=== PATIENT | female | born 1990 | race Caucasian/White ===

== ENCOUNTER 2016-07-05 15:10 | Emergency (ER) | payer OTHER ==
[2016-07-05 15:26] VITALS: BP 128/81; PULSE 92; TEMP 98.5; BMI 31.1
[2016-07-05] MEDS ORDERED: IBUPROFEN 400 MG TABLET (FP) PO ONE ×2 (16:20→16:35)
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
[2016-07-05] MEDS ORDERED: DIPHTH,PERTUSS(ACELL),TET 0.5 ML DISP.SYRIN IM ONE (16:55)
== END 2016-07-05 17:11 | disposition home or self-care (01) ==
LOC: JERFT 15:10
PROC: 08QPXZZ Repair Left Upper Eyelid, External Approach (ICD-10-PCS; principal; 2016-07-05)
DX: S09.90XA Unspecified injury of head, initial encounter (principal); S01.112A Laceration without foreign body of left eyelid and periocular area, initial encounter; Y04.2XXA Assault by strike against or bumped into by another person, initial encounter; Y93.89 Activity, other specified; Y92.9 Unspecified place or not applicable
CPT/HCPCS: 12011-25; 90715; 99282-25

== ENCOUNTER 2016-10-24 16:46 | Emergency (ER) | payer OTHER ==
[2016-10-24 16:57] VITALS: BP 102/64; PULSE 65; TEMP 97.9; BMI 30.9
[2016-10-24] MEDS ORDERED: SODIUM CHLORIDE 0.9% 1000 ML INFUS.BAG IV ONE (17:36)
[2016-10-24] MEDS ORDERED: METOCLOPRAMIDE HCL INJECTION 10 MG/2 ML VIAL IVPB ONE (17:36)
[2016-10-24] MEDS ORDERED: METOCLOPRAMIDE HCL INJECTION 10 MG/2 ML VIAL ONE (17:38)
--- NOTE | 2016-10-24 17:48 | PDOC ---
History of Present Illness - General Chief Complaint: Headache Stated Complaint: HEADACHE Time Seen by Provider: 10/24/16 17:17 History Source: Patient Exam Limitations: No Limitations - History of Present Illness Initial Comments: 10/24/16 17:45 Patient is a 26-year-old female, no significant medical history currently on no medication presents with headache since yesterday. Patient reports that headache started in the left zoroastrianism area and goes across her head like a band. Patient does not have a history of headaches, has taken Tylenol Motrin and Aleve without resolve of symptoms. Patient was told by her primary care doctor to come to emergency department for CT scan of the head. Patient states she does have photophobia, no neurosensory deficits, no dizziness, headache is described as stabbing and pressure. Patient currently started her menstrual cycle today. Denies any cough or cold like symptoms. Patient describes headache as "worse headache of her life". Patient due to get her period today. Mild spotting Past Medical History: Denies. Allergies: No known allergies Medications: Motrin, Tylenol, Aleve, when necessary Family History: Non-contributory Social History: Denies smoking, alcohol use, or IVDU Review of Systems GENERAL/CONSTITUTIONAL: No fever or chills. No weakness. No weight change. HEAD, EYES, EARS, NOSE AND THROAT: No change in vision. No ear pain or discharge. No sore throat. CARDIOVASCULAR: No chest pain or shortness of breath. RESPIRATORY: No cough, wheezing, or hemoptysis. GASTROINTESTINAL: No nausea, vomiting, diarrhea or constipation. No rectal bleeding. GENITOURINARY: No dysuria, frequency, or change in urination. MUSCULOSKELETAL: No joint or muscle swelling or pain. No neck or back pain. SKIN: No rash or easy bruising. NEUROLOGIC: No headache, vertigo, loss of consciousness, or loss of sensation. PSYCHIATRIC: No depression or anxiety. ENDOCRINE: No increased thirst. No abnormal weight change. HEMATOLOGIC/LYMPHATIC: No anemia, easy bleeding, or history of blood clots. ALLERGIC/IMMUNOLOGIC: No hives or skin allergy. No latex allergy. Physical Exam: GENERAL: The patient is awake, alert, and fully oriented, in no acute distress. HEAD: Normal with no signs of trauma. EYES: Pupils equal, round and reactive to light, extraocular movements intact, sclera anicteric, conjunctiva clear. ENT: Ears normal, nares patent, oropharynx clear without exudates. Moist mucous membranes. No uvula deviation no sinus pressure and pain. NECK: Normal range of motion, supple without lymphadenopathy, JVD, or masses. LUNGS: Breath sounds equal, clear to auscultation bilaterally. No wheezes, and no crackles. HEART: Regular rate and rhythm, normal S1 and S2 without murmur, rub or gallop. ABDOMEN: Soft, nontender, normoactive bowel sounds. No guarding, no rebound. No masses. No bruising or abrasions MUSCULOSKELETAL: Normal range of motion, no edema. No clubbing or cyanosis. No cords, erythema, or tenderness. No CVA Tenderness with fist. NEUROLOGICAL: Cranial nerves II through XII grossly intact. Normal speech, normal gait. PSYCH: Normal mood, normal affect. SKIN: Warm, Dry, normal turgor, no rashes or lesions noted. 10/24/16 17:48 Past History - Past Medical History Allergies/Adverse Reactions: Allergies Allergy/AdvReac Type Severity Reaction Status Date / Time No Known Allergies Allergy Verified 10/24/16 16:57 Home Medications: Ambulatory Orders Ibuprofen 800 mg PO TID PRN #21 tablet 07/05/16 Naproxen [Naprosyn -] 500 mg PO BID #20 tablet 10/24/16 Anemia: Yes Asthma: Yes (allergy induced) Cancer: No Cardiac Disorders: No Diabetes: No HTN: No Psychiatric Problems: Yes (anxiety) Seizures: No Thyroid Disease: No - Reproductive History (#): 8 Para: 5 Cervical CA: No Dysfunctional Uterine Bleeding: No Ectopic : No Endometrial CA: No Polycystic Ovaries: No Therapeutic (s) & number: No Tubal Ligation: No Spontaneous : 2 - Psycho/Social/Smoking Cessation Hx Anxiety: Yes Suicidal Ideation: No Smoking History: Never smoked Have you smoked in the past 12 months: No Number of Cigarettes Smoked Daily: 3 Information on smoking cessation initiated: No Hx Alcohol Use: No Drug/Substance Use Hx: No Substance Use Type: None Hx Substance Use Treatment: No *Physical Exam - Vital Signs Last Vital Signs Temp Pulse Resp BP Pulse Ox 97.9 F 65 18 102/64 99 10/24/16 16:54 10/24/16 16:54 10/24/16 16:54 10/24/16 16:54 10/24/16 16:54 Medical Decision Making - Medical Decision Making 10/24/16 17:47 A/P: Patient here for evaluation of headache which started yesterday, no history of headache. Plan: Urine , head CT Saline lock Reglan 10mg Benadryl 12.5 mg IV 10/24/16 19:00 After medication patient states that headache is slightly improved, awaiting urine specimen for urine in order to rule out to perform head CT 10/24/16 20:19 While awaiting urine , patient states that her headache is 100% resolved after the length, states that she does not want have head CT if headache returns she will follow-up with her primary care doctor tomorrow. I feel it is reasonable at this time to DC patient home, Naprosyn as needed for pain, strict follow-up with PMD tomorrow if headache persists or increased headache, nausea vomiting, unsteady gait, or any other concerns return immediately to ER. *DC/Admit/Observation/Transfer Diagnosis at time of Disposition: Headache Qualifiers: Headache type: tension-type Headache chronicity pattern: acute headache Intractability: not intractable Qualified Code(s): G44.209 - Tension-type headache, unspecified, not intractable - Discharge Dispostion Disposition: HOME Condition at time of disposition: Good Admit: No - Prescriptions Prescriptions: Naproxen [Naprosyn -] 500 mg PO BID #20 tablet - Patient Instructions Printed Discharge Instructions: DI for Headache Additional Instructions: Please follow-up with your primary care doctor tomorrow, than increased headache , nausea vomiting, unsteady gait, dizziness, or any other concerns return to ER - Post Discharge Activity Work/School Note: Back to Work
== END 2016-10-24 20:22 | disposition home or self-care (01) ==
LOC: JERFT 16:46
PROC: 3E033GC Introduction of Other Therapeutic Substance into Peripheral Vein, Percutaneous Approach (ICD-10-PCS; principal; 2016-10-24)
PROC: 3E033GC Introduction of Other Therapeutic Substance into Peripheral Vein, Percutaneous Approach (ICD-10-PCS; 2016-10-24)
DX: G44.209 Tension-type headache, unspecified, not intractable (principal); F41.9 Anxiety disorder, unspecified
CPT/HCPCS: 84703; 99281-25

== ENCOUNTER 2017-03-16 21:55 | Day surgery (SDC) | payer OTHER ==
--- NOTE | 2017-03-16 22:03 | PDOC ---
Rapid Medical Evaluation Chief Complaint: Vaginal Bleeding Time Seen by Provider: 03/16/17 21:58 Medical Evaluation: Allergies Allergy/AdvReac Type Severity Reaction Status Date / Time No Known Allergies Allergy Verified 10/24/16 16:57 03/16/17 21:58 27yo Female patient w/ PmHx: Asthma, and Anemia, 7 weeks presents to ED c/o vaginal bleeding. [id number]. Patient states she was seen by her SYSTEMS NAVIGATOR and ultrasound done which confirmed , but her home test was negative. She stated she was having symptoms although she was on control. She denies any other complaints at this time.
[2017-03-16 22:13] VITALS: BMI 31.1
--- NOTE | 2017-03-16 22:25 | PDOC ---
History of Present Illness - General History Source: Patient Exam Limitations: No Limitations - History of Present Illness Initial Comments: 03/16/17 23:32 The patient is a l7, 7 weeks , 27 year old female with no significant past medical history who presents to the ED with vaginal bleeding with large clots that began around 7 pm today. The patient states that she had no idea she was until last week, despite the fact she was on control. The patient states she began feeling symptoms. Her at home test was negative, but had an [facility] OPERATOR appointment to follow which demonstrated intrauterine at 7 weeks. In the ED she is actively bleeding and bled through her pants and onto to the exam table. She complains of mild suprapubic pain as well. The patient denies fever or chills. <Kinza Tirado - Last Filed: 03/17/17 00:37> <Erica Arnold - Last Filed: 03/17/17 00:44> <Beka Morgan - Last Filed: 03/17/17 02:32> <Ashlee Courtney - Last Filed: 03/17/17 02:38> - General Chief Complaint: Vaginal Bleeding Stated Complaint: VAGINAL BLEEDING Time Seen by Provider: 03/16/17 21:58 Past History <Kinza Tirado - Last Filed: 03/17/17 00:37> - Past Medical History Anemia: Yes Asthma: Yes (allergy induced) Cancer: No Cardiac Disorders: No Diabetes: No HTN: No Psychiatric Problems: Yes (anxiety) Seizures: No Thyroid Disease: No - Reproductive History (#): 8 Para: 5 Cervical CA: No Dysfunctional Uterine Bleeding: No Ectopic : No Endometrial CA: No Polycystic Ovaries: No Therapeutic (s) & number: No Tubal Ligation: No Spontaneous : 2 - Suicide/Smoking/Psychosocial Hx Smoking History: Never smoked Have you smoked in the past 12 months: No Number of Cigarettes Smoked Daily: 3 Hx Alcohol Use: No Drug/Substance Use Hx: No Substance Use Type: None Hx Substance Use Treatment: No <Erica Arnold - Last Filed: 03/17/17 00:44> <Beka Morgan - Last Filed: 03/17/17 02:32> <Ashlee Courtney - Last Filed: 03/17/17 02:38> - Past Medical History Allergies/Adverse Reactions: Allergies Allergy/AdvReac Type Severity Reaction Status Date / Time No Known Allergies Allergy Verified 10/24/16 16:57 Home Medications: Ambulatory Orders Ibuprofen 800 mg PO TID PRN #21 tablet 07/05/16 Naproxen [Naprosyn -] 500 mg PO BID #20 tablet 10/24/16 Review of Systems - Review of Systems Able to Perform ROS?: Yes Comments:: 03/16/17 23:39 GENERAL/CONSTITUTIONAL: No fever or chills. No weakness. HEAD, EYES, EARS, NOSE AND THROAT: No change in vision. No ear pain or discharge. No sore throat. CARDIOVASCULAR: No chest pain or shortness of breath. RESPIRATORY: No cough, wheezing, or hemoptysis. GASTROINTESTINAL: No nausea, vomiting, diarrhea or constipation. GENITOURINARY: Present: vaginal bleeding and clots No dysuria, frequency, or change in urination. MUSCULOSKELETAL: No joint or muscle swelling or pain. No neck or back pain. SKIN: No rash NEUROLOGIC: No headache, vertigo, loss of consciousness, or change in strength/ sensation. ENDOCRINE: No increased thirst. No abnormal weight change. HEMATOLOGIC/LYMPHATIC: No anemia, easy bleeding, or history of blood clots. ALLERGIC/IMMUNOLOGIC: No hives or skin allergy. All Other Systems: Reviewed and Negative <Kinza Tirado - Last Filed: 03/17/17 00:37> *Physical Exam - Vital Signs Last Vital Signs Temp Pulse Resp BP Pulse Ox 98.4 F 86 18 108/54 99 03/16/17 21:59 03/16/17 21:59 03/16/17 21:59 03/16/17 21:59 03/16/17 21:59 - Physical Exam Comments: 03/16/17 23:40 GENERAL: Awake, alert, and fully oriented, mildly uncomfortable HEAD: No signs of trauma EYES: PERRLA, EOMI, sclera anicteric, conjunctiva clear ENT: Auricles normal inspection, hearing grossly normal, nares patent, oropharynx clear without exudates. Moist mucosa NECK: Normal ROM, supple, no lymphadenopathy, JVD, or masses LUNGS: Breath sounds equal, clear to auscultation bilaterally. No wheezes, and no crackles HEART: Regular rate and rhythm, normal S1 and S2, no murmurs, rubs or gallops ABDOMEN: Soft, nontender, normoactive bowel sounds. No guarding, no rebound. No masses PELVIC: heavy active bleeding with large clots, multiple clots evacuated from vaginal vault, continued active bleeding for 10 minutes after removal of speculum. Os is open, no CMT, no adnexal tenderness EXTREMITIES: Normal range of motion, no edema. No clubbing or cyanosis. No cords, erythema, or tenderness NEUROLOGICAL: Cranial nerves II through XII grossly intact. Normal speech, normal gait SKIN: Warm, Dry, normal turgor, no rashes or lesions noted. <Kinza Tirado - Last Filed: 03/17/17 00:37> - Vital Signs Last Vital Signs Temp Pulse Resp BP Pulse Ox 98.4 F 86 18 108/54 99 03/16/17 21:59 03/16/17 21:59 03/16/17 21:59 03/16/17 21:59 03/16/17 21:59 <Erica Arnold - Last Filed: 03/17/17 00:44> - Vital Signs Last Vital Signs Temp Pulse Resp BP Pulse Ox 98.4 F 64 16 95/60 100 03/16/17 21:59 03/17/17 02:26 03/17/17 00:34 03/17/17 02:26 03/17/17 00:34 <Beka Morgan - Last Filed: 03/17/17 02:32> - Vital Signs Last Vital Signs Temp Pulse Resp BP Pulse Ox 98.4 F 64 16 95/60 100 03/16/17 21:59 03/17/17 02:26 03/17/17 00:34 03/17/17 02:26 03/17/17 00:34 <Ashlee Courtney - Last Filed: 03/17/17 02:38> ED Treatment Course - LABORATORY CBC & Chemistry Diagram: 03/16/17 23:00 - Medications Given in the ED: ED Medications Discontinued Medications Generic Name Dose Route Start Last Admin Trade Name Freq PRN Reason Stop Dose Admin Fentanyl 25 mcg 03/16/17 23:01 03/16/17 23:08 Sublimaze Injection - IVPUSH 01/12/18 23:02 25 mcg ONCE ONE Administration Sodium Chloride 1,000 ml 03/16/17 23:01 03/16/17 23:08 Normal Saline - IV 03/16/17 23:02 1,000 ml ONCE ONE Administration <Kinza Tirado - Last Filed: 03/17/17 00:37> - LABORATORY CBC & Chemistry Diagram: 03/16/17 23:00 <Erica Arnold - Last Filed: 03/17/17 00:44> - LABORATORY CBC & Chemistry Diagram: 03/16/17 23:00 - ADDITIONAL ORDERS Additional order review: Laboratory Results 03/16/17 03/16/17 23:08 23:08 PT with INR 11.00 INR 0.97 PTT (Actin FS) 27.7 Beta HCG, Quant [id number] 03/16/17 23:00 RBC 4.19 MCV 83.0 MCHC 33.8 RDW 12.6 D MPV 9.0 D Neutrophils % 63.1 Lymphocytes % 26.4 D Monocytes % 9.8 Eosinophils % 0.4 Basophils % 0.3 - Medications Given in the ED: ED Medications Discontinued Medications Generic Name Dose Route Start Last Admin Trade Name Mila PRN Reason Stop Dose Admin Fentanyl 25 mcg 03/16/17 23:01 03/16/17 23:08 Sublimaze Injection - IVPUSH 03/16/17 23:02 25 mcg ONCE ONE Administration Methylergonovine Maleate 0.2 mg 03/17/17 00:41 03/17/17 01:54 Methergine Injection - IM 03/17/17 00:42 0.2 mg ONCE ONE Administration Sodium Chloride 1,000 ml 03/16/17 23:01 03/16/17 23:08 Normal Saline - IV 03/16/17 23:02 1,000 ml ONCE ONE Administration Sodium Chloride 1,000 ml 03/17/17 02:06 03/17/17 02:08 Normal Saline - IV 03/17/17 02:07 1,000 ml ONCE ONE Administration <Beka Morgan - Last Filed: 03/17/17 02:32> - LABORATORY CBC & Chemistry Diagram: 03/17/17 02:18 - ADDITIONAL ORDERS Additional order review: Laboratory Results 03/16/17 03/16/17 23:08 23:08 PT with INR 11.00 INR 0.97 PTT (Actin FS) 27.7 Beta HCG, Quant [id number] 03/17/17 03/16/17 02:18 23:00 RBC 3.57 L 4.19 MCV 83.0 83.0 MCHC 33.8 33.8 RDW 12.8 12.6 D MPV 8.3 9.0 D Neutrophils % 66.6 63.1 Lymphocytes % 24.5 26.4 D Monocytes % 8.4 9.8 Eosinophils % 0.2 0.4 Basophils % 0.3 0.3 - Medications Given in the ED: ED Medications Discontinued Medications Generic Name Dose Route Start Last Admin Trade Name Mila PRN Reason Stop Dose Admin Fentanyl 25 mcg 03/16/17 23:01 03/16/17 23:08 Sublimaze Injection - IVPUSH 03/16/17 23:02 25 mcg ONCE ONE Administration Methylergonovine Maleate 0.2 mg 03/17/17 00:41 03/17/17 01:54 Methergine Injection - IM 03/17/17 00:42 0.2 mg ONCE ONE Administration Sodium Chloride 1,000 ml 03/16/17 23:01 03/16/17 23:08 Normal Saline - IV 03/16/17 23:02 1,000 ml ONCE ONE Administration Sodium Chloride 1,000 ml 03/17/17 02:06 03/17/17 02:08 Normal Saline - IV 03/17/17 02:07 1,000 ml ONCE ONE Administration <Ashlee Courtney - Last Filed: 03/17/17 02:38> Medical Decision Making - Medical Decision Making 03/17/17 00:34 Phone call placed to [facility] telecommunications cable jointer, and call returned promptly by Dr. Oliveira. Case is discussed, <Kinza Tirado - Last Filed: 03/17/17 00:37> - Medical Decision Making 03/17/17 00:45 Pt presents to the ED complaining of heavy vaginal bleeding. Per patient report , she was seen at her CERTIFIED HISTOLOGIC TECHNICIAN office and diagnosed with 7 week IUP by ultrasound last week. Bleeding started this AM. When I examined the patient, she was bleeding heavily, with large clots and a very large amount of active bleeding-- about 500 cc. I was able to evacuate the blood from the vaginal vault and remove a small clot from the os. Os is open. I went back to reassess the patient and she is still heavily bleeding. I have discussed the patient with Dr. Oliveira, who recommends methergen and pitocin and an ultrasound to evaluate for retained products. Will start meds, check US and discuss again with Dr. Oliveira. <Erica Arnold - Last Filed: 03/17/17 00:44> - Medical Decision Making 03/17/17 02:32 Referring Physician: ERNESTO PURDY Patient Name: LEANDRA YANES EXAM: Transabdominal pelvic ultrasound, endovaginal pelvic ultrasound and pelvic duplex HISTORY: Status post recent termination of . Bleeding. Rule out retained products. COMPARISON: None. FINDINGS: Transabdominal pelvic ultrasound:Uterus is anteverted and measures 10.4centimeters in length. Endovaginal pelvic ultrasound:The endometrium is thickened to 2.1 cm, slightly heterogeneous and does demonstrate foci of hypervascularity, very suspicious for retained products of conception. There are no fibroids. The right ovary measures 2.7centimeters in length, and a small complex cyst, possibly a corpus luteum and demonstrates normal color flow. Left ovary was not visualized. There is no significant free fluid. Referring Physician: ERNESTO PURDY Pelvic duplex: There is normal arterial and venous flow in the right ovary. IMPRESSION: Suspected retained product of conception. Nonvisualization of the left ovary. Read by: Ivan Carranza MD <Beka Morgan - Last Filed: 03/17/17 02:32> - Medical Decision Making 03/17/17 02:35 I received pt on signout. Vag bleed after spontaneous ab/miscarriage. She has + retained products of conception. She will be admitted to [facility] <Ashlee Courtney - Last Filed: 03/17/17 02:38> *DC/Admit/Observation/Transfer - Attestations Scribe Attestion: 03/16/17 23:42 Documentation prepared by Kinza Tirado, acting as medical fee clerk for Erica Arnold MD. <Kinza Tirado - Last Filed: 03/17/17 00:37> <Erica Arnold - Last Filed: 03/17/17 00:44> <Beka Morgan - Last Filed: 03/17/17 02:32> - Discharge Dispostion Admit: Yes <Ashlee Courtney - Last Filed: 03/17/17 02:38> Diagnosis at time of Disposition: Retained products of conception - Discharge Dispostion Condition at time of disposition: Guarded
[2017-03-16] MEDS ORDERED: SODIUM CHLORIDE 0.9% 1000 ML INFUS.BAG IV ONE (23:01)
[2017-03-17 00:21] LABS: BASO % 0.3 % (0-2.0); EOS % 0.4 % (0-4.5); HEMATOCRIT 34.8 % (32.4-45.2); HEMOGLOBIN 11.7 GM/dL (10.7-15.3); LYMPH % 26.4 % (8-40); MCHC 33.8 g/dl (32.0-36.0); MONO % 9.8 % (3.8-10.2); NEUT % 63.1 % (42.8-82.8); PLATELET COUNT 270 K/MM3 (134-434); RBC 4.19 M/mm3 (3.60-5.2); RDW 12.6 % (11.6-15.6); WHITE BLOOD COUNT 9.9 K/mm3 (4.0-10.0)
[2017-03-17 00:36] LABS: INR 0.97 (0.82-1.09)
[2017-03-17 00:39] LABS: ACTIVATED PTT 27.7 SECONDS (26.9-34.4)
[2017-03-17] MEDS ORDERED: METHYLERGONOVINE MALEATE 0.2 MG/1 ML AMP IM ONE (00:41)
[2017-03-17] MEDS ORDERED: D5W-LR W/ 20 UNITS OXYTOCIN 20 UNIT/1,000 ML INFUS.BAG IV SCH (00:45)
[2017-03-17] MEDS ORDERED: OXYTOCIN 10 UNITS/ML VIAL ONE (00:46)
[2017-03-17] MEDS ORDERED: SODIUM CHLORIDE 0.9% 500 ML INFUS.BAG IV ONE (02:06)
[2017-03-17 02:25] LABS: BASO % 0.3 % (0-2.0); EOS % 0.2 % (0-4.5); HEMATOCRIT 29.6 % (32.4-45.2); LYMPH % 24.5 % (8-40); MCH 28.1 pg (25.7-33.7); MCHC 33.8 g/dl (32.0-36.0); MEAN PLT VOLUME 8.3 fl (7.5-11.1); MONO % 8.4 % (3.8-10.2); NEUT % 66.6 % (42.8-82.8); PLATELET COUNT 232 K/MM3 (134-434); RBC 3.57 M/mm3 (3.60-5.2); RDW 12.8 % (11.6-15.6); WHITE BLOOD COUNT 8.8 K/mm3 (4.0-10.0)
[2017-03-17 03:23] LABS: ALBUMIN 3.4 g/dl (3.4-5.0); ALK PHOS 76 U/L (45-117); ANION GAP 10 (8-16); BILIRUBIN,TOTAL 0.2 mg/dL (0.2-1.0); BLOOD UREA NITROGEN 7 mg/dL (7-18); CALCIUM 8.1 mg/dL (8.5-10.1); CHLORIDE 102 mmol/L (98-107); CO2 23 mmol/L (21-32); CREATININE 0.6 mg/dL (0.55-1.02); GLUCOSE,RANDOM 87 mg/dL (74-106); POTASSIUM 4.1 mmol/L (3.5-5.1); SGOT/AST 10 U/L (15-37); SGPT/ALT 13 U/L (12-78); SODIUM 135 mmol/L (136-145); TOT PROT 7.1 g/dl (6.4-8.2)
[2017-03-17] MEDS ORDERED: IBUPROFEN 800 MG/8 ML IJ IVPB PRN ×2 (07:57→13:24)
--- NOTE | 2017-03-17 09:14 | HP ---
Past Medical History - Primary Care Physician PCP:: Chuy Sanchez - Admission Chief Complaint: heavy vaginal bleeding, incomplete History of Present Illness: , 27 yo f 7 weeks c/o heavy vaginal bleeding since 7 pm 03/16/17 , passed several large clots , has severe pain , sono showed retained POC , admitted for suction curettage History Source: Patient Limitations to Obtaining History: No Limitations - Past Surgical History Hx Myomectomy: No Hx Transabdominal Cerclage: No - Smoking History Smoking history: Never smoked Have you smoked in the past 12 months: No Aproximately how many cigarettes per day: 3 - Alcohol/Substance Use Hx Alcohol Use: No - Social History History of Recent Travel: No Home Medications - Allergies Allergies/Adverse Reactions: Allergies Allergy/AdvReac Type Severity Reaction Status Date / Time No Known Allergies Allergy Verified 03/17/17 04:30 - Home Medications Home Medications: Ambulatory Orders Ibuprofen [Motrin -] 600 mg PO QID #28 tablet 03/17/17 Review of Systems - Review of Systems Constitutional: reports: Lethargy Eyes: reports: No Symptoms HENT: reports: No Symptoms Neck: reports: No Symptoms Cardiovascular: reports: No Symptoms Respiratory: reports: No Symptoms Gastrointestinal: reports: No Symptoms Genitourinary: reports: Vaginal Bleeding Musculoskeletal: reports: No Symptoms Integumentary: reports: No Symptoms Neurological: reports: No Symptoms Endocrine: reports: No Symptoms Hematology/Lymphatic: reports: No Symptoms Psychiatric: reports: No Symptoms Physical Exam-[employer]PER[employer]OR Vital Signs: Vital Signs Temperature 98.3 F 03/17/17 08:04 Pulse Rate 81 03/17/17 08:04 Respiratory Rate 17 03/17/17 08:04 Blood Pressure 110/62 03/17/17 08:04 O2 Sat by Pulse Oximetry (%) 100 03/17/17 08:06 Constitutional: Yes: Well Nourished, No Distress, Calm Eyes: Yes: WNL, Conjunctiva Clear, EOM Intact HENT: Yes: WNL, Atraumatic, Normocephalic Neck: Yes: WNL, Supple, Trachea Midline Cardiovascular: Yes: WNL, Regular Rate and Rhythm Respiratory: Yes: WNL, Regular, CTA Bilaterally Gastrointestinal: Yes: WNL ...Rectal Exam: Yes: WNL Renal/: Yes: WNL Vaginal Exam: Yes: Bleeding (open , bleeding from os) Cervix: Yes: Normal (bleeding from os , os open) Uterus: Yes: Enlarged, Soft, Tender Adnexa: Not Palpable: Left, Right Breast(s): Yes: WNL Musculoskeletal: Yes: WNL Extremities: Yes: WNL Integumentary: Yes: WNL Neurological: Yes: WNL, Alert, Oriented ...Motor Strength: WNL Psychiatric: Yes: WNL, Alert, Oriented Labs: CBC, BMP 03/17/17 02:18 03/16/17 23:08 Problem List - Problem (1) Incomplete Code(s): O03.4 - INCOMPLETE SPONTANEOUS WITHOUT COMPLICATION Assessment/Plan suction curettage, rba discussed
[2017-03-17] MEDS ORDERED: DEXAMETHASONE SOD PHOSPHATE 4 MG/1 ML VIAL ONE (09:42)
[2017-03-17] MEDS ORDERED: KETOROLAC TROMETHAMINE 30 MG/1 ML VIAL ONE (09:42)
[2017-03-17] MEDS ORDERED: LIDOCAINE HCL/PF 2% SDV 5ML VIAL ONE (09:42)
[2017-03-17] MEDS ORDERED: PROPOFOL 20 ML ONE (09:44)
[2017-03-17] MEDS ORDERED: MIDAZOLAM HCL 2 MG/2 ML SINGLE DOSE VIAL ONE ×2 (09:44)
[2017-03-17] MEDS ORDERED: ELECTROLYTE-148 SOLN 1,000 ML IV SCH (09:45)
[2017-03-17] MEDS ORDERED: ONDANSETRON 4 MG/2 ML VIAL IVPUSH PRN ×2 (09:45→10:06)
[2017-03-17] MEDS ORDERED: ceFAZolin SODIUM 1 GM VIAL ONE (09:58)
[2017-03-17] MEDS ORDERED: PROMETHAZINE HCL 25 MG/1 ML VIAL IVPUSH PRN (10:06)
[2017-03-17] MEDS ORDERED: LACTATED RINGERS SOLUTION 1,000 ML IV SCH (10:15)
[2017-03-17] MEDS ORDERED: oxyCODONE HCL 5 MG TABLET PO PRN (13:25)
[2017-03-17] MEDS: IBUPROFEN 600 MG TABLET (FP) PO PRN ×2 (14:59→21:14)
--- NOTE | 2017-03-17 17:19 | OP ---
DATE OF OPERATION: 03/17/2017 PREOPERATIVE DIAGNOSIS: Incomplete . POSTOPERATIVE DIAGNOSIS: Incomplete . PROCEDURE: Suction curettage. SURGEON: Chuy Sanchez MD ANESTHESIA: General. ANESTHESIOLOGIST: Dr. Morejon. ESTIMATED BLOOD LOSS: 100 mL. DESCRIPTION OF PROCEDURE: The patient was taken to the operating room under adequate general anesthesia in dorsal lithotomy position. Examination under anesthesia revealed external genitalia to be normal. Vagina was normal with some blood in the vault. Os was open with a small amount of bleeding from the os. Uterus was 8 weeks' size, anteverted, soft. Adnexa, no masses were palpable. Then with the weighted speculum in the vagina, anterior lip of the cervix was grasped with a single-tooth tenaculum. The cervix was dilated. Did not require dilation. Then suction curette was inserted and contents was suctioned. A large amount of tissue was obtained. The patient tolerated the procedure well and left the OR in good condition. Shruti [id number]
[2017-03-17] MEDS: oxyCODONE HCL 5 MG TABLET PO PRN ×2 (17:47→23:44)
[2017-03-18] MEDS ORDERED: ONDANSETRON *ODT* 4 MG TABLET SL PRN (09:14)
[2017-03-18] MEDS ORDERED: ACETAMINOPHEN 325 MG TABLET (FP) PO PRN (09:14)
[2017-03-18] MEDS: IBUPROFEN 600 MG TABLET (FP) PO PRN (09:25)
[2017-03-18 10:15] LABS: HEMATOCRIT 26.6 % (32.4-45.2); HEMOGLOBIN 8.9 GM/dL (10.7-15.3); MCH 27.5 pg (25.7-33.7); MCHC 33.3 g/dl (32.0-36.0); MEAN CELL VOLUME 82.5 fl (80-96); MEAN PLT VOLUME 8.5 fl (7.5-11.1); PLATELET COUNT 271 K/MM3 (134-434); RBC 3.23 M/mm3 (3.60-5.2); RDW 12.7 % (11.6-15.6); WHITE BLOOD COUNT 10.8 K/mm3 (4.0-10.0)
[2017-03-18 10:52] LABS: ALBUMIN 3.3 g/dl (3.4-5.0); ALK PHOS 64 U/L (45-117); ANION GAP 9 (8-16); BILIRUBIN,TOTAL 0.3 mg/dL (0.2-1.0); BLOOD UREA NITROGEN 3 mg/dL (7-18); CALCIUM 7.9 mg/dL (8.5-10.1); CHLORIDE 105 mmol/L (98-107); CO2 25 mmol/L (21-32); CREATININE 0.7 mg/dL (0.55-1.02); GLUCOSE,RANDOM 96 mg/dL (74-106); POTASSIUM 3.8 mmol/L (3.5-5.1); SGOT/AST 7 U/L (15-37); SGPT/ALT 12 U/L (12-78); SODIUM 139 mmol/L (136-145); TOT PROT 6.5 g/dl (6.4-8.2)
--- NOTE | 2017-03-18 13:31 | CONSULT ---
Consultation: REQUESTING PROVIDER: Dr. Oliveira CONSULT REQUEST: We have been asked to medically evaluate this patient for ZHU. HISTORY OF PRESENT ILLNESS: The patient is a 27 year old female with a history of seasonal asthma, who initially presents to the ED with vaginal bleeding with large clots, found to be 7 weeks . Imaging revealed incomplete . Pt underwent D&C by Dr. Oliveira. Post procedure pt reports of having severe Rt sided severe ZHU with dizziness, blurred vision, denies double vision,nausea,vomiting, cp, sob, palpitations,rhinorrhea, nasal congestion, throat pain, throat swelling. Denies previous hx of migraine but c/o sensitivity to lights sounds,generalized weakness. Vaginal pelvic ultrasound:The endometrium is thickened to 2.1 cm, slightly heterogeneous and does demonstrate foci of hypervascularity, very suspicious for retained products of conception. There are no fibroids. The right ovary measures 2.7centimeters in length, and a small complex cyst, possibly a corpus luteum and demonstrates normal color flow. Left ovary was not visualized. Pelvic duplex: There is normal arterial and venous flow in the right ovary.here is no significant free fluid. REVIEW OF SYSTEMS: CONSTITUTIONAL: Reports generalized weakness, malaise, Absent: fever, chills, diaphoresis, loss of appetite, weight change HEENT: Absent: rhinorrhea, nasal congestion, throat pain, throat swelling, difficulty swallowing, mouth swelling, ear pain, eye pain, visual changes CARDIOVASCULAR: Absent: chest pain, syncope, palpitations, irregular heart rate, lightheadedness , peripheral edema RESPIRATORY: Absent: cough, shortness of breath, dyspnea with exertion, orthopnea, wheezing, stridor, hemoptysis GASTROINTESTINAL: Absent: abdominal pain, abdominal distension, nausea, vomiting, diarrhea, constipation, melena, hematochezia GENITOURINARY: Absent: dysuria, frequency, urgency, hesitancy, hematuria, flank pain, genital pain MUSCULOSKELETAL: Absent: myalgia, arthralgia, joint swelling, back pain, neck pain SKIN: Absent: rash, itching, pallor HEMATOLOGIC/IMMUNOLOGIC: Absent: easy bleeding, easy bruising, lymphadenopathy, frequent infections ENDOCRINE: Absent: unexplained weight gain, unexplained weight loss, heat intolerance, cold intolerance NEUROLOGIC: Absent: headache, focal weakness or paresthesias, dizziness, unsteady gait, seizure, mental status changes, bladder or bowel incontinence PSYCHIATRIC: Absent: anxiety, depression, suicidal or homicidal ideation, hallucinations. PHYSICAL EXAMINATION Vital Signs - 24 hr 03/17/17 03/17/17 03/17/17 14:15 15:22 15:26 Temperature 98.1 F 98.4 F Pulse Rate 76 63 Respiratory 20 16 16 Rate Blood Pressure 105/58 99/57 O2 Sat by Pulse 100 Oximetry (%) 03/17/17 03/17/17 03/18/17 16:20 21:00 07:48 Temperature 97.7 F 98.3 F Pulse Rate 71 81 Respiratory 20 18 20 Rate Blood Pressure 107/57 99/49 O2 Sat by Pulse 100 Oximetry (%) 03/18/17 09:00 Temperature Pulse Rate Respiratory 20 Rate Blood Pressure O2 Sat by Pulse 100 Oximetry (%) GENERAL: Awake, alert, and fully oriented, in no acute distress. HEAD: Normal with no signs of trauma. EYES: Pupils equal, round and reactive to light, extraocular movements intact, sclera anicteric, conjunctiva clear. No lid lag, + sinus tenderness EARS, NOSE, THROAT: Ears normal, nares patent, oropharynx clear without exudates. Moist mucous membranes. NECK: Normal range of motion, supple without lymphadenopathy, JVD, or masses. LUNGS: Breath sounds equal, clear to auscultation bilaterally. No wheezes, and no crackles. No accessory muscle use. HEART: Regular rate and rhythm, normal S1 and S2 without murmur, rub or gallop. ABDOMEN: Soft, nontender, not distended, normoactive bowel sounds, no guarding, no rebound, no masses. No hepatomegaly or splenomegaly. MUSCULOSKELETAL: Normal range of motion at all joints. No bony deformities or tenderness. No CVA tenderness. UPPER EXTREMITIES: 2+ pulses, warm, well-perfused. No cyanosis. No clubbing. Cap refill <2 seconds. No peripheral edema. LOWER EXTREMITIES: 2+ pulses, warm, well-perfused. No calf tenderness. No peripheral edema. NEUROLOGICAL: Cranial nerves II-XII intact. Normal speech. Normal gait. PSYCHIATRIC: Cooperative. Good eye contact. Appropriate mood and affect. SKIN: Warm, dry, normal turgor, no rashes or lesions noted. Laboratory Results - last 24 hr 03/18/17 03/18/17 10:00 10:00 WBC 10.8 H RBC 3.23 L Hgb 8.9 L D Hct 26.6 L MCV 82.5 MCH 27.5 MCHC 33.3 RDW 12.7 Plt Count 271 MPV 8.5 Sodium 139 Potassium 3.8 Chloride 105 Carbon Dioxide 25 Anion Gap 9 BUN 3 L Creatinine 0.7 Creat Clearance w eGFR > 60 Random Glucose 96 Calcium 7.9 L Total Bilirubin 0.3 D AST 7 L D ALT 12 Alkaline Phosphatase 64 D Total Protein 6.5 Albumin 3.3 L Active Medications Generic Name Dose Route Start Last Admin Trade Name Freq PRN Reason Stop Dose Admin Acetaminophen 650 mg 03/18/17 09:14 03/18/17 09:26 Tylenol - PO 650 mg Q4H PRN Administration PAIN Ibuprofen 600 mg 03/17/17 13:25 03/18/17 09:25 Motrin - PO 600 mg Q6H PRN Administration FEVER Ondansetron HCl 4 mg 03/18/17 09:14 03/18/17 09:26 Zofran Odt - SL 4 mg Q6H PRN Administration NAUSEA ASSESSMENT/PLAN: The patient is a 27 year old female with a history of seasonal asthma, who initially presents to the ED with vaginal bleeding with large clots, found to be 7 weeks . pt underwent D&C, post procedure pt c/o ZHU. * ZHU? migraine vs sinusitis -will get CT head - neuro checks -will order Fioricet -increase fluid intake * Vaginal bleeding -s/p incomplete , s/p D&C - APPRENTICE CARPENTER following *Acute on chronic anemia, likely secondary to bleeding - s/p incomplete - watch out for bleeding Dispo: We will continue to follow the patient. Thank you for this consultative opportunity. Addendum: CT Head revealed no intracranial pathology, ZHU reportedly improved with Fioricept, medically stable for discharge. Visit type - Emergency Visit Emergency Visit: Yes Care time: The patient presented to the Emergency Department on the above date and was hospitalized for further evaluation of their emergent condition. - New Patient This patient is new to me today: Yes Date on this admission: 03/18/17 - Critical Care Critical Care patient: No
[2017-03-18] MEDS ORDERED: ACETAMINOPHEN/CAFFEINE/BUTALBITAL 1 TAB PO ONE (15:00)
[2017-03-18 17:13] VITALS: BP 102/44; PULSE 78; TEMP 98.2
--- NOTE | 2017-03-20 15:22 | PATH ---
Surgical Pathology Report Patient Name: LEANDRA BARRERA [facility]. Rec. #: [id number] /Age/Gender: 1990 (Age: 27) / F Account: [id number] Location: EMERGENCY ROOM Taken: 03/17/2017 Received: 03/19/2017 Reported: 03/20/2017 Physicians: Chuy Sanchez M.D. Specimen(s) Received UTERINE CONTENTS Clinical History Retained products of conception Final Diagnosis UTERINE CONTENTS, SUCTION DILATATION AND CURETTAGE: IMMATURE CHORIONIC VILLI, DECIDUA, AND GESTATIONAL ENDOMETRIUM CONSISTENT WITH PRODUCTS OF CONCEPTION. Electronically Signed Maryanne Kumar M.D. Gross Description Received in formalin labeled "uterine contents," is a 9.0 x 7.3 x 0.7 cm aggregate of chawla-brown soft tissue fragments. No definite villous tissue or somatic tissue is identified. Bridge Tender sections are submitted in 3 cassettes. /03/19/2017 saudi/03/19/2017
== END 2017-03-18 18:36 | disposition home or self-care (01) ==
LOC: JER 21:55 → JERBED 03-17 02:39 → UNDOADMIN 03-17 02:39 → JERBED 03-17 03:04 → JASUSAT 03-17 09:50 → J8W 03-17 11:06 → JASUSAT 03-18 18:36
PROVIDERS: ATTEND Obstetrics & Gynecology
PROC: 10D17ZZ Extraction of Products of Conception, Retained, Via Natural or Artificial Opening (ICD-10-PCS; principal; 2017-03-17 09:46)
DX: O03.4 Incomplete spontaneous abortion without complication (principal)
CPT/HCPCS: 36415; 70450-TC; 76817-TC; 80053; 84702; 85025; 85027; 85610; 85730; 86850; 86900; 86901; 88305-TC; 94760; 99285-25

== ENCOUNTER 2018-06-25 20:17 | Emergency (ER) | payer OTHER ==
--- NOTE | 2018-06-25 20:28 | PDOC ---
Rapid Medical Evaluation Chief Complaint: Rash Time Seen by Provider: 06/25/18 20:26 Medical Evaluation: Allergies Allergy/AdvReac Type Severity Reaction Status Date / Time No Known Allergies Allergy Verified 03/17/17 04:30 06/25/18 20:27 I did a brief in person evaluation on this patient. CC: Rash HPI: Pt has a pruritic rash over her entire body x 4 days. Last dose of Benadryl was at 1130 today. Pt denies changes in soaps, lotions, laundry detergents, foods or medications. PE: Skin: erythematous lesions over her entire body Lungs: Clear Heart:RRR MS: Moves all extremities without difficulty Neuro: alert Psych: appropriate affect. Pt will proceed to [facility] for further evaluation. Discharge Disposition - Diagnosis Rash - Referrals - Patient Instructions - Post Discharge Activity
[2018-06-25 20:30] VITALS: BP 103/59; PULSE 70; TEMP 98.1; BMI 27.0
[2018-06-25] MEDS ORDERED: DEXAMETHASONE LIQUID 0.5 MG/5 ML 240 ML BULK BOTTLE PO ONE (21:53)
--- NOTE | 2018-06-25 21:55 | PDOC ---
History of Present Illness - General Chief Complaint: Rash Stated Complaint: RASH Time Seen by Provider: 06/25/18 20:26 - History of Present Illness Initial Comments: 06/25/18 21:53 28-year-old female without comorbidities presents for a diffuse body rash 3 days without any precipitating event. No systemic symptoms. Past History - Past Medical History Allergies/Adverse Reactions: Allergies Allergy/AdvReac Type Severity Reaction Status Date / Time No Known Allergies Allergy Verified 06/25/18 21:35 Home Medications: Ambulatory Orders NK [No Known Home Medication] 06/25/18 Anemia: Yes Asthma: Yes (allergy induced) Cancer: No Cardiac Disorders: No COPD: No Diabetes: No HTN: No Psychiatric Problems: Yes (anxiety) Seizures: No Thyroid Disease: No - Reproductive History (#): 9 Para: 7 Cervical CA: No Dysfunctional Uterine Bleeding: No Ectopic : No Endometrial CA: No Polycystic Ovaries: No Therapeutic (s) & number: No Tubal Ligation: No Spontaneous : 2 - Suicide/Smoking/Psychosocial Hx Smoking History: Never smoked Have you smoked in the past 12 months: No Number of Cigarettes Smoked Daily: 3 Information on smoking cessation initiated: No Hx Alcohol Use: No Drug/Substance Use Hx: No Substance Use Type: None Hx Substance Use Treatment: No Review of Systems - Review of Systems Constitutional: No: Fever Integumentary: Yes: Pruritus, Rash *Physical Exam - Vital Signs Last Vital Signs Temp Pulse Resp BP Pulse Ox 98.1 F 70 17 103/59 L 100 06/25/18 20:28 06/25/18 20:28 06/25/18 20:28 06/25/18 20:28 06/25/18 20:28 - Physical Exam Comments: 06/25/18 21:53 HEAD: NC/AT EYES: Conjuntiva clear Ears: Canals and TM's normal NOSE: No d/c THROAT: Moist mucous membrances, oral pharanx clear, uvula midline NECK: Supple without adenopathy CARDIAC: S1 S2 LUNGS: CTA Full and Equal breath sounds ABDOMEN: Soft NT ND MS: Full ROM in all joints without edema NEUROLOGIC: No gross sensory or motor deficits, NVID SKIN: Normal color and temperature there are diffuse to raised wheals on the back thighs and arms. No indication of secondary infection. Medical Decision Making - Medical Decision Making 06/25/18 21:54 Patient got mild relief with Benadryl at home. I will and Decadron a one-time dose now and have her follow-up with her PCP with instructions to continue with at home Benadryl. *DC/Admit/Observation/Transfer Diagnosis at time of Disposition: Rash, Rash due to allergy - Discharge Dispostion Disposition: HOME Condition at time of disposition: Stable Decision to Admit order: No - Referrals Referrals: Maryanne Garner MD [Primary Care Provider] - - Patient Instructions Additional Instructions: You were treated with a one-time dose of a long-acting steroid. Return to the emergency room should symptoms worsen. Continue with at home Benadryl for itching. Follow-up with your primary care doctor in the next 1-2 days for further evaluation and treatment options. - Post Discharge Activity
[2018-06-25] MEDS ORDERED: DEXAMETHASONE SOD PHOSPHATE 10 MG/1 ML VIAL ONE (21:58)
== END 2018-06-25 22:12 | disposition home or self-care (01) ==
LOC: JERFT 20:17
DX: T78.40XA Allergy, unspecified, initial encounter (principal); X58.XXXA Exposure to other specified factors, initial encounter
CPT/HCPCS: 99281-25

== ENCOUNTER 2018-08-18 16:26 | Emergency (ER) | payer OTHER | END 2018-08-18 17:35 | disposition home or self-care (01) | LOC: JERFT 16:26 ==